=== PATIENT | male | born 1975 | race Caucasian/White ===

== ENCOUNTER → 2018-12-16 17:09 | Outpatient (CLI) | payer MEDICARE, MEDICAID, SELFPAY ==
[2018-12-16 18:44] LABS: Basophils % 0.6 % (0.1-2.0); Eosinophils # 0.5 K/mm3 (0.0-0.4); Eosinophils % 7.6 % (0.1-12.0); Hematocrit 45.2 % (42.0-52.0); Hemoglobin 14.7 g/dL (14.1-18.0); Lymphocytes # 3.1 K/mm3 (0.7-4.5); Lymphocytes % 47.4 % (10-50); Mean Corpuscular HGB Conc 32.4 g/dL (31.8-35.4); Mean Corpuscular Hemoglobin 30.5 pg (27.0-31.2); Mean Corpuscular Volume 94.2 fl (80-94); Monocytes # 0.6 K/mm3 (0.1-1.0); Monocytes % 8.6 % (1.7-9.3); Neutrophils # 2.3 K/mm3 (1.8-7.8); Neutrophils % 35.9 % (37.0-80.0); Platelet Count 187 K/mm3 (142-424); Red Cell Distribution Width 12.9 % (11.5-17.5); White Blood Count 6.5 K/mm3 (4.8-10.8)
[2018-12-16 18:59] LABS: Alanine Aminotransferase 34 U/L (12-78); Albumin Level 4.3 gm/dL (3.4-5.0); Albumin/Globulin Ratio 1.4 (1.1-1.8); Alkaline Phosphatase 163 U/L (46-116); Anion Gap 13.2 mEq/L (5-15); Aspartate Amino Transferase 16 U/L (15-37); Bilirubin,Total 0.2 mg/dL (0.2-1.0); Blood Urea Nitrogen 21 mg/dL (7-18); Calcium 9.4 mg/dL (8.5-10.1); Carbon Dioxide 29 mmol/L (21.0-32.0); Chloride 105 mmol/L (98-107); Cholesterol 186 mg/dL (140-200); Creatinine,Serum 1.04 mg/dL (0.70-1.30); Estimated Glomerular Filt Rate 78 ml/min (>60); GFR (African American) 95 ML/MIN (>60); Glucose 79 mg/dL (74-106); HDL Cholesterol 37 mg/dL (27-67); LDL Cholesterol 125 mg/dL (0-130); Potassium 5.2 mmoL/L (3.5-5.1); Sodium 142 mmol/L (136-145); T4 (Thyroxine) 7.4 ug/dl (4.7-13.3); Thyroid Stimulating Hormone 0.75 uIU/ml (0.358-3.740); Total Protein,Serum 7.3 gm/dL (6.4-8.2); Triglycerides 118 mg/dL (30-200); VLDL Cholesterol 24 mg/dL (0-40)
[2018-12-18 16:11] LABS: Hep A Ab, IgM Negative (Negative); Hepatitis B Core Antibody IgM Negative (Negative); Hepatitis B Surface Antigen Negative (Negative)
[2018-12-18 17:21] LABS: Hepatitis C Antibody <0.1 s/co ratio (0.0-0.9)
[2018-12-19 11:05] LABS: Vitamin D 25 Hydroxy 16.2 ng/mL (30.0-100.0)
== END ==
LOC: LAB 17:10 → LAB.DROPOF 12-18 10:56
PROVIDERS: Visit Provider Nurse Practitioner Family
DX: I10 Essential (primary) hypertension (principal); R53.83 Other fatigue; Z13.220 Encounter for screening for lipoid disorders; Z11.59 Encounter for screening for other viral diseases
CPT/HCPCS: 80053; 80061; 80074; 82652; 84436; 84443; 85025

== ENCOUNTER → 2018-12-23 09:28 | Outpatient (CLI) | payer MEDICARE, MEDICAID, SELFPAY ==
--- NOTE | 2018-12-23 10:01 | XR_ITS ---
XR chest 2V HISTORY: ITS.REASON: smoker/ elevated alk phos ORDERING PHYSICIAN: Yvonne Hassan PATIENT AGE: 43 years COMPARISON: None FINDINGS: The cardiomediastinal silhouette and pulmonary vascularity are within normal limits. There are numerous small pulmonary nodules largest in the left lower lung zone at 10 mm. While these may be due to granulomas, one cannot exclude the possibility of metastatic disease in this patient with elevated alkaline phosphatase. Suggest CT of the chest without and with contrast for further evaluation. No acute bony anomalies. No lytic or blastic changes evident. IMPRESSION: Innumerable pulmonary nodules which may be due to granulomas. Suggest chest CT for confirmation
[2018-12-23 10:49] LABS: Potassium 4.2 mmoL/L (3.5-5.1)
== END ==
PROVIDERS: PCP Emergency Medicine; Visit Provider Nurse Practitioner Family
DX: E87.5 Hyperkalemia (principal); R74.8 Abnormal levels of other serum enzymes; F17.200 Nicotine dependence, unspecified, uncomplicated
CPT/HCPCS: 36415; 71046; 84132

== ENCOUNTER → 2019-02-03 12:53 | Outpatient (CLI) | payer MEDICAID, SELFPAY ==
--- NOTE | 2019-02-03 12:54 | CT_ITS ---
CT chest w con HISTORY: Smoker, elevated alkaline phosphatase, abnormal chest x-ray, pulmonary nodules ITS.REASON: abn cxr ORDERING PHYSICIAN: Yvonne Hassan PATIENT AGE: 43 years COMPARISON: None TECHNIQUE: Axial images obtained following the administration of 75 mL of Optiray 350 . Sagittal, and coronal reformatted images are also generated and reviewed. All CT scans at the facility use one or more dose reduction, viz: automated exposure control, ma/kV adjustment per patient size (including targeted exams where dose is matched to indication, i.e. head), or iterative reconstruction technique. FINDINGS: No mediastinal or hilar mass or adenopathy. No evidence of aortic aneurysm or dissection or central pulmonary embolus. There are innumerable pulmonary nodules most of which are calcified or contain calcium consistent with multiple granulomas. The largest nodules in the left lower lobe posteriorly corresponding to the nodule identified on the radiograph. There is hyperinflation with attenuation of peripheral pulmonary vessels consistent with COPD/smoking-related lung disease. No effusions or infiltrates. No acute bony anomalies. IMPRESSION: 1. Old granulomatous disease with multiple calcified pulmonary nodules/granulomas. 2. No suspicious nodules identified. 3. COPD.
== END ==
PROVIDERS: PCP Nurse Practitioner Family; Visit Provider Nurse Practitioner Family
DX: R93.89 Abnormal findings on diagnostic imaging of other specified body structures (principal)
CPT/HCPCS: 71260; Q9967

== ENCOUNTER → 2020-05-06 15:09 | Outpatient (CLI) | payer BC, SELFPAY | PROVIDERS: Visit Provider Emergency Medicine | DX: L02.91 Cutaneous abscess, unspecified (principal) | CPT/HCPCS: 87070; 87077; 87186; 87205 ==

== ENCOUNTER 2020-06-04 21:58 | Emergency (ER) | payer BC, SELFPAY ==
[2020-06-04 22:06] VITALS: BP 143/105; PULSE 86; RESP 16; O2SAT 97; BMI 26.6
--- NOTE | 2020-06-04 22:16 | HMH.EDMCLR ---
ED Disposition Clinical Impression: Medical clearance for incarceration Disposition: Home, Self-Care Condition on Discharge: Good Instructions: DI for Drug Abuse and Drug Addiction Additional Instructions: call pcp for follow up Referrals: Taiwo Joseph MD [Primary Care Provider] - - Critical Care Critical Care Time: No Attestation: On 06/04/20, the high probability of a clinically significant, sudden or life threatening deterioration of the following system(s) required my full and direct attention, intervention and personal management. The time I documented below is in addition to time spent performing reported procedures but includes the following listed in this critical care notation. Medical Decision Making - Medical Records Medical records reviewed: Yes: I reviewed the patient's medical records. - Phi Inquiry Pt receiving controlled substance: No Vital Signs: 06/04/20 22:06 Pulse Rate [Left Brachial] 86 Respiratory Rate 16 Blood Pressure [Left Arm] 143/105 H Blood Pressure Mean [Left Arm] 117 Blood Pressure Source [Left Arm] Automatic Cuff Blood Pressure Position [Left Arm] Sitting 02 Sat by Pulse Oximetry 97 Oxygen Delivery Method Room Air Medical Clearance HPI - General Chief complaint: Medical Clearance Stated complaint: Medical Clearance Time Seen by Provider: 06/04/20 22:15 Mode of Arrival: Ambulatory Source of Information: Patient, Medical Record Description of Symptoms (Recalled from ER Triage Doc. by RN): Patient brought in for medical clearance. Patient reports he last used meth early this morning. - History of Present Illness HPI Narrative: pt without specific c/o MD complaint: medical clearance requested Onset (ago): hour(s) Reason for Medical Clearance: intoxication Place: home Alleged Intoxication: Yes Traumatic Symptoms: denies traumatic injury Associated Symptoms: denies other symptoms Treatments Prior to Arrival: none Home medications: Previous Rx's Medication Instructions Recorded minocycline 100 mg capsule 100 mg PO BID 10 Days #20 cap 05/06/20 mupirocin 2 % topical ointment 1 applic TOPICAL BID #30 g 05/06/20 levofloxacin 500 mg tablet 500 mg PO DAILY 10 Days #10 tab 05/13/20 Allergies/Adverse reactions: Allergies Allergy/AdvReac Type Severity Reaction Status Date / Time Penicillins Allergy Verified 05/15/20 11:00 [facility] History - Hepatitis A Screen Drug use history?: No High risk sexual behaviors?: No History of sexually transmitted infection?: No Currently employed?: No Childcare worker?: No Do you have indoor plumbing?: Yes Do you have electricity?: Yes Attestation statement:: This patient has been screened for Hepatitis A risk factors. I have reviewed the patient's past medical history: Yes Medical History: Reports:: Anxiety, Hypertension Other Surgeries: Yes: No Previous Surgery Amputation: No Fractures: Yes - Social History Smoking Status: Current every day smoker Tobacco Type: cigarettes # Packs/Day (cigarettes): 1 Alcohol Intake: never Substance Use Type: methamphetamine Occupational Status: unemployed - Psychiatric History Pschychiatric History:: Reports:: Anxiety Family Hx:: Hypertension, Cancer Comment: Mitral valve prolapse - Mother ROS Obtained: Yes All systems reviewed & no additional complaints - Constitutional Constitutional: Denies fever(s) - Eyes Eyes: Denies change in vision - ENT Ears, Nose, Mouth, and Throat: Denies sore throat - Cardiovascular Cardiovascular: Denies chest pain - Respiratory Respiratory: No cough - Gastrointestinal Gastrointestingal: Denies: abdominal pain - Genitourinary Male Genitourinary: Denies hematuria - Musculoskeletal Musculoskeletal: Denies joint pain - Integumentary/Breasts Skin/Breast: Denies rash - Neurologic Neurologic: Denies seizure-like activity, Denies vertigo Physical Exam - General General appearance: alert - Head Head exam: no
--- NOTE | 2020-06-04 22:30 | PC.NURSE ---
pt left at 2225 via police
[2020-06-04 22:33] VITALS: BP 131/83; PULSE 81; RESP 16; TEMP 36.7; O2SAT 98
== END 2020-06-04 22:34 | disposition home or self-care (01) ==
PROVIDERS: Emergency Provider Emergency Medicine; PCP Emergency Medicine
DX: Z00.8 Encounter for other general examination (principal); F19.10 Other psychoactive substance abuse, uncomplicated
CPT/HCPCS: 99281; 99282

== ENCOUNTER 2020-09-18 06:06 | Emergency (ER) | payer MEDICAID, SELFPAY ==
[2020-09-18 06:18] VITALS: BP 153/90; PULSE 82; RESP 16; TEMP 36.6; O2SAT 97; BMI 25.8
--- NOTE | 2020-09-18 06:26 | XR_ITS ---
PROCEDURE: XR FINGER LT MIN 2V CLINICAL INDICATION: Possible forign object to left index finger Pain and swelling COMPARISON: No exams were available for comparison FINDINGS: No fracture or dislocation. No lytic or blastic change. There is normal mineralization. The joint spaces are well-preserved. No significant degenerative/arthritic changes. No erosive changes evident. Other findings:No radiopaque foreign body IMPRESSION: No acute findings. Dictated by: Andrzej Little MD 09/18/2020 06:42 Andrzej Little MD in [place] 09/18/2020 06:42
--- NOTE | 2020-09-18 06:37 | HMH.EDUPEXT ---
ED Disposition Clinical Impression: Cellulitis Qualifiers: Site of cellulitis: extremity Site of cellulitis of extremity: finger Laterality: left Qualified Code(s): L03.012 - Cellulitis of left finger Disposition: Home, Self-Care Condition on Discharge: Good Instructions: Cellulitis Additional Instructions: keep clean and see pcp for follo wup Prescriptions: cephALEXin [Keflex 500mg Cap] 500 mg PO TID #30 cap Transmission Status: Pending to [facility] Referrals: Taiwo Joseph MD [Primary Care Provider] - - Critical Care Critical Care Time: No Attestation: On 09/18/20, the high probability of a clinically significant, sudden or life threatening deterioration of the following system(s) required my full and direct attention, intervention and personal management. The time I documented below is in addition to time spent performing reported procedures but includes the following listed in this critical care notation. Medical Decision Making - Medical Records Medical records reviewed: Yes: I reviewed the patient's medical records. - Phi Inquiry Pt receiving controlled substance: No Vital Signs: 09/18/20 06:18 Temperature 97.9 F Temperature Source Oral Pulse Rate [Right] 82 Respiratory Rate 16 Blood Pressure [Right Arm] 153/90 H Blood Pressure Mean [Right Arm] 111 Blood Pressure Source [Right Arm] Automatic Cuff Blood Pressure Position [Right Arm] Sitting 02 Sat by Pulse Oximetry 97 Oxygen Delivery Method Room Air Orders (Tests/Meds): ED MEDICATIONS Discontinued Medications Generic Name Dose Route Start Last Admin Trade Name Freq PRN Reason Stop Dose Admin Tetanus/Diphtheria Toxoids 0.5 ml 09/18/20 06:26 09/18/20 06:32 Tetanus-Diphth Toxoid, Adult 0.5ml Syr IM 09/18/20 06:27 0.5 ml .ONCE ONE Administration ORDERS Category Date Time Status XR finger LT min 2V Stat Exams 09/18/20 06:26 Ordered - Radiology Data #1 Image(s): Hand Image Reviewed: Yes I reviewed the patient's radiology image Preliminary Findings: No Fracture Seen Upper Extremity HPI - General Chief Complaint: Extremity Injury, Upper Stated Complaint: Mashed left index finger 7 days ago, swelling Time Seen by Provider: 09/18/20 06:25 Mode of Arrival: Ambulatory Source of Information: Patient, Medical Record Limitations: No Limitations Description of Symptoms (Recalled from ER Triage Doc. by RN): Pt got a small lac to his left index finger 7 days ago, having edema and pain today - History of Present Illness HPI narrative: lac about 7 days at work - now red and dec rom - - workman comp forms completed MD complaint: injury to: left, finger Onset (ago): day(s) Other Extremity Injury: Left: fingers Handedness: right Place: work Severity: moderate Context: laceration - Related Data Previous Rx's Medication Instructions Recorded cephALEXin [Keflex 500mg Cap] 500 mg PO TID #30 cap 09/18/20 Allergies Allergy/AdvReac Type Severity Reaction Status Date / Time Penicillins Allergy Verified 05/15/20 11:00 [facility] History - Hepatitis A Screen Drug use history?: No High risk sexual behaviors?: No History of sexually transmitted infection?: No Currently employed?: No Childcare worker?: No Do you have indoor plumbing?: Yes Do you have electricity?: Yes Attestation statement:: This patient has been screened for Hepatitis A risk factors. I have reviewed the patient's past medical history: Yes Medical History: Reports:: Anxiety, Hypertension Denies:: Diabetes Mellitus Type 1, Diabetes Mellitus Type 2 Other Surgeries: Yes: No Previous Surgery Amputation: No Fractures: Yes - Social History Smoking Status: Current every day smoker Tobacco Type: cigarettes # Packs/Day (cigarettes): 1 Alcohol Intake: never Substance Use Type: methamphetamine Occupational Status: employed - Psychiatric History Pschychiatric History:: Reports:: Anxiety Family Hx:: Hypertension
[2020-09-18 07:09] VITALS: BP 148/88; PULSE 80; RESP 14; TEMP 36.6; O2SAT 98
== END 2020-09-18 07:11 | disposition home or self-care (01) ==
PROVIDERS: Emergency Provider Emergency Medicine; PCP Emergency Medicine
DX: L03.012 Cellulitis of left finger (principal); Z23 Encounter for immunization; S61.211A Laceration without foreign body of left index finger without damage to nail, initial encounter; L08.9 Local infection of the skin and subcutaneous tissue, unspecified; W26.9XXA Contact with unspecified sharp object(s), initial encounter
CPT/HCPCS: 73140; 90471; 90714; 99282

== ENCOUNTER 2021-02-17 20:23 | Emergency (ER) | payer OTHER, SELFPAY ==
[2021-02-17 20:40] VITALS: BP 152/92; PULSE 89; RESP 14; TEMP 37.3; O2SAT 97; BMI 25.8
--- NOTE | 2021-02-17 20:46 | HMH.EDUTC ---
[facility] [place] Clinical Impression: Strep throat, Exposure to COVID-19 virus Disposition: Home, Self-Care Condition on Discharge: Good Instructions: DI for Strep Throat, Preventing the Spread of Coronavirus Discharge Instructions Additional Instructions: Drink plenty of fluids. Take tylenol or ibuprofen for pain or fever. Take the medications as directed. Follow up with your regular doctor. GO TO THE ER FOR ANY WORSENING SYMPTOMS Prescriptions: clindamycin HCL [Clindamycin HCl] 300 mg PO Q8H 10 Days #30 cap Transmission Status: Received by [facility] Referrals: Taiwo Joseph MD [Primary Care Provider] - Forms: Work/School Release Time of Disposition: 20:49 Medical Decision Making - Medical Records Medical records reviewed: No: I reviewed the patient's medical records. - Phi Inquiry Pt receiving controlled substance: No Vital Signs: 02/17/21 20:40 02/17/21 20:50 Temperature 99.1 F 99 F Temperature Source Oral Pulse Rate 83 Pulse Rate [Right] 89 Respiratory Rate 14 14 Blood Pressure 149/89 H Blood Pressure [Right Arm] 152/92 H Blood Pressure Mean [Right Arm] 112 02 Sat by Pulse Oximetry 97 [facility] [place] - General Stated complaint: covid test Time Seen by Provider: 02/17/21 20:46 Mode of Arrival: Ambulatory Source of Information: Patient Limitations: No Limitations Description of Symptoms (Recalled from Triage Doc. by RN): pt states he has a sore throat and possible fever. says overall he just feels bad. HEENT Symptoms (Recalled from RN notes): Yes (sore throat) Resp Symptoms (Recalled from RN notes): No Skin Symptoms (Recalled from RN notes): No MS Symptoms (Recalled from RN notes): No Functional Status (Recalled from RN notes): na - History of Present Illness Provider Complaint: He states that for the past 3 days he has had sore throat, cough, chilling and fever. He denies any known exposure to covid-19. - Related Data Previous Rx's Medication Instructions Recorded cephALEXin [Keflex 500mg Cap] 500 mg PO TID #30 cap 09/18/20 clindamycin HCL [Clindamycin HCl] 300 mg PO Q8H 10 Days #30 cap 02/17/21 Allergies Allergy/AdvReac Type Severity Reaction Status Date / Time Penicillins Allergy Verified 02/17/21 20:43 - Worker's Comp Is this a Worker's Comp case?: No [facility] History - Hepatitis A Screen Drug use history?: No High risk sexual behaviors?: No History of sexually transmitted infection?: No Currently employed?: No Childcare worker?: No Do you have indoor plumbing?: Yes Do you have electricity?: Yes Attestation statement:: This patient has been screened for Hepatitis A risk factors. I have reviewed the patient's past medical history: Yes Medical History: Reports:: Anxiety, Hypertension Denies:: Diabetes Mellitus Type 1, Diabetes Mellitus Type 2 Other Surgeries: Yes: No Previous Surgery Amputation: No Fractures: Yes - Social History Smoking Status: Current every day smoker Tobacco Type: cigarettes # Packs/Day (cigarettes): 1 Alcohol Intake: never Substance Use Type: methamphetamine Occupational Status: employed - Psychiatric History Pschychiatric History:: Reports:: Anxiety Family Hx:: Hypertension, Cancer Comment: Mitral valve prolapse - Mother ROS Obtained: Yes All systems reviewed & no additional complaints - Constitutional Constitutional: Reports chills, Reports fever(s), Reports poor appetite, Reports malaise - Eyes Eyes: Denies eye discharge - ENT Ears, Nose, Mouth, and Throat: Reports as per HPI Physical Exam - General General appearance: alert, in no apparent distress - Head Head exam: atraumatic, normocephalic, normal inspection - Eye Eye exam: Present: normal appearance, PERRL, EOMI - ENT ENT exam: Present: mucous membranes moist, normal external ear exam - Expanded ENT Exam TM/Canal exam: Bilateral TM: erythema, bulging Mouth exam: Present: normal external inspection Teeth exam: Prese
[2021-02-17 20:50] VITALS: BP 149/89; PULSE 83; RESP 14; TEMP 37.2
== END 2021-02-17 21:00 | disposition home or self-care (01) ==
PROVIDERS: Emergency Provider Nurse Practitioner Family; PCP Emergency Medicine
DX: J02.0 Streptococcal pharyngitis (principal); Z20.822 Contact with and (suspected) exposure to COVID-19; Z88.0 Allergy status to penicillin; F41.9 Anxiety disorder, unspecified; I10 Essential (primary) hypertension; F17.210 Nicotine dependence, cigarettes, uncomplicated; Z79.899 Other long term (current) drug therapy
CPT/HCPCS: 99202; G0463; U0003

== ENCOUNTER 2021-06-18 16:51 | Emergency (ER) | payer BC, SELFPAY ==
[2021-06-18 16:52] VITALS: BP 174/114; PULSE 84; RESP 19; TEMP 36.6; O2SAT 98; BMI 25.0
--- NOTE | 2021-06-18 17:25 | HMH.EDUTC ---
[facility] [place] Disposition Clinical Impression: Right arm cellulitis, Poison deloris Disposition: Home, Self-Care Condition on Discharge: Good Instructions: Cellulitis, DI for Poison Deloris Allergy Additional Instructions: Keep the affected area clean and dry. Follow up with your regular doctor. Take the antibiotics as directed and apply the topical antibiotics as directed. Apply warm wet compresses to the affected area three or four times per day. GO TO THE ER FOR ANY WORSENING SYMPTOMS Prescriptions: Sulfamethoxazole/Trimethoprim [Bactrim DS tablet] 1 each PO BID 10 Days #20 tab [facility] cephALEXin [cephALEXin 500mg capsule] 500 mg PO Q6H 10 Days #40 cap Transmission Status: [facility] methylPREDNISolone [Medrol] 4 mg PO DIRECTED 6 Days #21 tab.ds.pk Transmission Status: Received by [facility] Referrals: Taiwo Joseph MD [Primary Care Provider] - Forms: Work/School Release Time of Disposition: 17:45 Medical Decision Making - Medical Records Medical records reviewed: No: I reviewed the patient's medical records. - Phi Inquiry Pt receiving controlled substance: No Vital Signs: 06/18/21 16:52 06/18/21 17:57 Temperature 97.8 F 97.8 F Temperature Source Oral Pulse Rate 84 Pulse Rate [Left Radial] 84 Respiratory Rate 19 19 Blood Pressure 174/114 H Blood Pressure [Right Arm] 174/114 H Blood Pressure Mean [Right Arm] 134 Blood Pressure Source [Right Arm] Automatic Cuff Blood Pressure Position [Right Arm] Sitting 02 Sat by Pulse Oximetry 98 Oxygen Delivery Method Room Air Room Air Orders (Tests/Meds): ORDERS Category Date Time Status Wound Culture and Gram Stain Stat Micro 06/18/21 17:55 Results [facility] [place] HPI - General Stated complaint: infected arm Time Seen by Provider: 06/18/21 17:25 - History of Present Illness Provider Complaint: He states that he has an infected area on his right arm that has been getting worse for the past 2 days. He is not a diabetic. He denies iv drug use. He states that he had poison deloris and then he got infected from the itching. - Related Data Previous Rx's Medication Instructions Recorded cephALEXin [Keflex 500mg Cap] 500 mg PO TID #30 cap 09/18/20 clindamycin HCL [Clindamycin HCl] 300 mg PO Q8H 10 Days #30 cap 02/17/21 Sulfamethoxazole/Trimethoprim 1 each PO BID 10 Days #20 tab 06/18/21 [Bactrim DS tablet] cephALEXin [cephALEXin 500mg 500 mg PO Q6H 10 Days #40 cap 06/18/21 capsule] methylPREDNISolone [Medrol] 4 mg PO DIRECTED 6 Days #21 06/18/21 tab.ds.pk Allergies Allergy/AdvReac Type Severity Reaction Status Date / Time Penicillins Allergy Verified 02/17/21 20:43 [facility] [place] History - Hepatitis A Screen Attestation statement:: This patient has been screened for Hepatitis A risk factors. I have reviewed the patient's past medical history: Yes Medical History: Reports:: Anxiety, Hypertension Denies:: Diabetes Mellitus Type 1, Diabetes Mellitus Type 2 Other Surgeries: Yes: No Previous Surgery Amputation: No Fractures: Yes - Social History Smoking Status: Current every day smoker Tobacco Type: cigarettes # Packs/Day (cigarettes): 1 Alcohol Intake: never Substance Use Type: methamphetamine Occupational Status: employed - Psychiatric History Pschychiatric History:: Reports:: Anxiety Family Hx:: Hypertension, Cancer Comment: Mitral valve prolapse - Mother ROS Obtained: Yes All systems reviewed & no additional complaints - Constitutional Constitutional: Denies chills, Denies fever(s), Reports poor appetite, Denies malaise - Eyes Eyes: Denies eye discharge - ENT Ears, Nose, Mouth, and Throat: Denies dizziness, Denies otalgia, Denies sore throat - Cardiovascular Cardiovascular: Denies chest pain - Respiratory Respiratory: Denies chest congestion, Denies cough, Denies dyspnea, Denies stridor, Denies wheezing - Gastrointesti
[2021-06-18 17:57] VITALS: BP 174/114; PULSE 84; RESP 19; TEMP 36.6; O2SAT 98
== END 2021-06-18 17:58 | disposition home or self-care (01) ==
PROVIDERS: Emergency Provider Nurse Practitioner Family; PCP Emergency Medicine
DX: L03.113 Cellulitis of right upper limb (principal); L23.7 Allergic contact dermatitis due to plants, except food; F17.210 Nicotine dependence, cigarettes, uncomplicated; Z88.0 Allergy status to penicillin
CPT/HCPCS: 87070; 87077; 87186; 87205; 99202; G0463

== ENCOUNTER 2021-07-20 11:26 | Emergency (ER) | payer BC, SELFPAY ==
[2021-07-20 11:30] VITALS: BP 144/80; PULSE 79; RESP 18; TEMP 36.6; O2SAT 99; BMI 25.0
--- NOTE | 2021-07-20 11:40 | HMH.EDUTC ---
[facility] [place] Disposition Clinical Impression: Exposure to COVID-19 virus Cellulitis Qualifiers: Site of cellulitis: extremity Site of cellulitis of extremity: finger Laterality: right Qualified Code(s): L03.011 - Cellulitis of right finger Disposition: Home, Self-Care Condition on Discharge: Good Instructions: Cellulitis, COVID-19 Viral Test Additional Instructions: covid swab was sent to lab, call later today for results. self isolate until test results are known to be negative antibiotics as ordered follow up with pcp if symptoms worsen return or be seen in ed Prescriptions: Sulfamethoxazole/Trimethoprim [Bactrim DS tablet] 1 each PO BID 10 Days #20 tab Transmission Status: Pending to [facility] Referrals: Taiwo Joseph MD [Primary Care Provider] - Time of Disposition: 11:46 Medical Decision Making - Phi Inquiry Pt receiving controlled substance: No Vital Signs: 07/20/21 11:30 Temperature 97.8 F Temperature Source Oral Pulse Rate [Right Brachial] 79 Respiratory Rate 18 Blood Pressure [Right Arm] 144/80 H Blood Pressure Mean [Right Arm] 101 Blood Pressure Source [Right Arm] Automatic Cuff Blood Pressure Position [Right Arm] Sitting 02 Sat by Pulse Oximetry 99 Oxygen Delivery Method Room Air Orders (Tests/Meds): ORDERS Category Date Time Status Covid-19 Nasal PCR ([facility]) Routine Lab 07/20/21 11:36 Ordered [facility] [place] HPI - General Chief complaint: [facility] Stated complaint: covid test for work return Time Seen by Provider: 07/20/21 11:41 Mode of Arrival: Ambulatory Source of Information: Patient Limitations: No Limitations Description of Symptoms (Recalled from Triage Doc. by RN): COVID TEST TO RETURN TO WORK, EXPOSED TO SON. DENIES SYMPTOMS HEENT Symptoms (Recalled from RN notes): No Resp Symptoms (Recalled from RN notes): No Skin Symptoms (Recalled from RN notes): No MS Symptoms (Recalled from RN notes): No Functional Status (Recalled from RN notes): WNL - History of Present Illness Provider Complaint: 45 yr old male presents for covid test states his sone tested positive and he is 6 days out and needs a covid test to return to work. pt states he also has a abscess on rt knuckle he has been on antibiotics and it has improved but still red and draining. - Related Data Previous Rx's Medication Instructions Recorded cephALEXin [Keflex 500mg Cap] 500 mg PO TID #30 cap 09/18/20 clindamycin HCL [Clindamycin HCl] 300 mg PO Q8H 10 Days #30 cap 02/17/21 Sulfamethoxazole/Trimethoprim 1 each PO BID 10 Days #20 tab 06/18/21 [Bactrim DS tablet] cephALEXin [cephALEXin 500mg 500 mg PO Q6H 10 Days #40 cap 06/18/21 capsule] methylPREDNISolone [Medrol] 4 mg PO DIRECTED 6 Days #21 06/18/21 tab.ds.pk Sulfamethoxazole/Trimethoprim 1 each PO BID 10 Days #20 tab 07/20/21 [Bactrim DS tablet] Allergies Allergy/AdvReac Type Severity Reaction Status Date / Time Penicillins Allergy Verified 02/17/21 20:43 - Worker's Comp Is this a Worker's Comp case?: No [facility] History - Hepatitis A Screen Drug use history?: No High risk sexual behaviors?: No History of sexually transmitted infection?: No Currently employed?: No Childcare worker?: No Do you have indoor plumbing?: Yes Do you have electricity?: Yes Attestation statement:: This patient has been screened for Hepatitis A risk factors. I have reviewed the patient's past medical history: Yes Medical History: Reports:: Anxiety, Hypertension Denies:: Diabetes Mellitus Type 1, Diabetes Mellitus Type 2 Other Surgeries: Yes: No Previous Surgery Amputation: No Fractures: Yes - Social History Smoking Status: Current every day smoker Tobacco Type: cigarettes # Packs/Day (cigarettes): 1 Alcohol Intake: never Substance Use Type: methamphetamine Occupational Status: employed - Psychiatric History Pschychiatric History:: Reports:: Anxiety Family Hx:: Hypertension, Cancer Comment: Mitral valve prolapse -
[2021-07-20 11:45] VITALS: BP 144/80; PULSE 79; RESP 18; TEMP 36.6; O2SAT 99
== END 2021-07-20 11:50 | disposition home or self-care (01) ==
PROVIDERS: Emergency Provider Nurse Practitioner Family; PCP Emergency Medicine
DX: Z11.52 Encounter for screening for COVID-19 (principal)
CPT/HCPCS: 99202; G0463; U0003

== ENCOUNTER 2021-08-17 09:56 | Emergency (ER) | payer BC, SELFPAY ==
[2021-08-17 10:00] VITALS: BP 116/84; PULSE 61; RESP 19; TEMP 37; O2SAT 98; BMI 22.1
[2021-08-17 10:13] VITALS: BP 116/84; PULSE 61; RESP 19; TEMP 37; O2SAT 98
--- NOTE | 2021-08-17 10:13 | HMH.EDUTC ---
[facility] [place]ression: Exposure to COVID-19 virus Disposition: Home, Self-Care Condition on Discharge: Good Instructions: DI for COVID-19 (Suspected or Confirmed ), Preventing the Spread of Coronavirus Discharge Instructions Additional Instructions: *Monitor Temp, Over the counter Motrin or Tylenol as directed/as needed Tylenol every 4 hours and Motrin every 6 hours (as long as your family doctor has told you that you can take it) for fever or pain. and straight to ER if unable to lower temp less than 101.0 after medication given Follow up IMMEDIATELY for new or worsening symptoms or no Noticeable improvement over the next 48-72 hours. 911 for difficulty breathing or swallowing You were tested for today for COVID19 your test result should be back in the next 24-48 hours, you was given Handout to [facility] portal to check your results if you have issues logging on you may call the [id number] for your Results You was given a handout with instructions for Self Quarantine and Self isolation for while you wait on test results and what to do if they are positive If you are positive the Health Dept will be contacting you also Make sure to take your Vitamins Vit. C Vit D and Zinc if you can take them Referrals: Taiwo Joseph MD [Primary Care Provider] - As needed Forms: Work/School Release Medical Decision Making - Phi Inquiry Pt receiving controlled substance: No Phi was queried for this patient: No Vital Signs: 08/17/21 10:00 Temperature 98.6 F Temperature Source Oral Pulse Rate [Right Brachial] 61 Respiratory Rate 19 Blood Pressure [Right Arm] 116/84 Blood Pressure Mean [Right Arm] 94 Blood Pressure Source [Right Arm] Automatic Cuff Blood Pressure Position [Right Arm] Sitting 02 Sat by Pulse Oximetry 98 Oxygen Delivery Method Room Air Orders (Tests/Meds): ORDERS Category Date Time Status Covid-19 Nasal PCR ([facility]) Routine Lab 08/17/21 10:00 [place] [facility] [place] - General Stated complaint: exposed covid test Time Seen by Provider: 08/17/21 10:14 Mode of Arrival: Ambulatory Source of Information: Patient Limitations: No Limitations Description of Symptoms (Recalled from Triage Doc. by RN): COVID TEST D/T EXPOSURE. DENIES SYMPTOMS HEENT Symptoms (Recalled from RN notes): No Resp Symptoms (Recalled from RN notes): No Skin Symptoms (Recalled from RN notes): No MS Symptoms (Recalled from RN notes): No Functional Status (Recalled from RN notes): WNL - History of Present Illness Provider Complaint: Patient states that he was around his son that tested positive for COVID and he was around him about a week ago States that work will not let him return until he has a neg COVID test States that he is not having any symptoms and just needs to get tested for COVID - Related Data Previous Rx's Medication Instructions Recorded cephALEXin [Keflex 500mg Cap] 500 mg PO TID #30 cap 09/18/20 clindamycin HCL [Clindamycin HCl] 300 mg PO Q8H 10 Days #30 cap 02/17/21 Sulfamethoxazole/Trimethoprim 1 each PO BID 10 Days #20 tab 06/18/21 [Bactrim DS tablet] cephALEXin [cephALEXin 500mg 500 mg PO Q6H 10 Days #40 cap 06/18/21 capsule] methylPREDNISolone [Medrol] 4 mg PO DIRECTED 6 Days #21 06/18/21 tab.ds.pk Sulfamethoxazole/Trimethoprim 1 each PO BID 10 Days #20 tab 07/20/21 [Bactrim DS tablet] Allergies Allergy/AdvReac Type Severity Reaction Status Date / Time Penicillins Allergy Verified 02/17/21 20:43 - Worker's Comp Is this a Worker's Comp case?: No [facility] History - Hepatitis A Screen Drug use history?: No High risk sexual behaviors?: No History of sexually transmitted infection?: No Currently employed?: No Childcare worker?: No Do you have indoor plumbing?: Yes Do you have electricity?: Yes Attestation statement:: This patient has been screened for Hepatitis A risk factors. I have reviewed the patient's past medical history: Yes Medical History: Reports:: Anx
== END 2021-08-17 10:18 | disposition home or self-care (01) ==
PROVIDERS: Emergency Provider Nurse Practitioner; PCP Emergency Medicine
DX: Z20.822 Contact with and (suspected) exposure to COVID-19 (principal); F41.9 Anxiety disorder, unspecified; I10 Essential (primary) hypertension; F17.210 Nicotine dependence, cigarettes, uncomplicated; Z88.0 Allergy status to penicillin
CPT/HCPCS: 99202; C9803; G0463; U0003; U0005

== ENCOUNTER → 2021-11-04 08:02 | Outpatient (CLI) | payer OTHER, SELFPAY | PROVIDERS: PCP Emergency Medicine; Visit Provider Nurse Practitioner | DX: Z20.822 Contact with and (suspected) exposure to COVID-19 (principal) | CPT/HCPCS: C9803; U0003; U0005 ==

== ENCOUNTER → 2021-12-14 10:40 | Outpatient (CLI) | payer OTHER, SELFPAY | PROVIDERS: Visit Provider Nurse Practitioner | DX: Z20.822 Contact with and (suspected) exposure to COVID-19 (principal) | CPT/HCPCS: C9803; U0003; U0005 ==